=== PATIENT | female | born 1990 | race Caucasian/White ===

== ENCOUNTER → 2019-09-29 | Outpatient (CLI) | payer OTHER | END | disposition home or self-care (01) | LOC: LAB 13:33 | PROVIDERS: ATTEND Internal Medicine Gastroenterology | DX: Z11.59 Encounter for screening for other viral diseases (principal) | CPT/HCPCS: U0003-CS ==

== ENCOUNTER → 2019-10-03 | Day surgery (SDC) | payer OTHER ==
[~2019-10-03] MED LIST: IV RINGERS,LACTATED 1000ML 1,000 ML IV ONE; PROPOFOL 10 MG/ML (20ML) VIAL. IV ONE
[2019-10-03 12:39] VITALS: BP 101/65
--- NOTE | 2019-10-04 17:06 | PATHOLOGY ---
[facility] Accession Number: [id number] . 01 Material submitted: . PART A: duodenum - BIOPSY SECOND PORTION DUODENUM. Modifiers: second PART B: duodenum bulb - BIOPSY DUODENAL BULB PART C: stomach - BIOPSY GASTRIC ANTRUM AND BODY. Modifiers: body PART D: esophagus - BIOPSY DISTAL ESOPHAGUS. Modifiers: distal PART E: ileum - BIOPSY TERMINAL ILEUM PART F: colon - BIOPSY RIGHT COLON. Modifiers: right PART G: colon - BIOPSY LEFT COLON. Modifiers: left . 01 Clinical history: . diarrhea . 02 Diagnosis: A. Duodenal biopsies, second portion duodenum: - No significant pathologic abnormalities. . B. Duodenal biopsies, duodenal bulb: - No significant pathologic abnormalities. . C. Gastric biopsies, gastric body and gastric antrum: - Chronic gastritis, mild. . D. Esophageal biopsies, distal esophagus: - Reflux esophagitis. . E. Small intestine mucosa, terminal ileum biopsies: - No significant pathologic abnormalities. . F. Colonic mucosa, right colon biopsies: - Collagenous colitis. . G. Colonic mucosa, left colon biopsies: - Collagenous colitis. . (JP:fco; 10/04/2019) [facility] 10/04/2019 1630 Local . 02 Comment: Sections of the second portion of duodenum biopsy reveal segments of duodenal and small intestine mucosa. Where best oriented, mucosal villi show no sprue-like changes or significant inflammatory changes. . Segments of the duodenal bulb biopsy reveal segments of duodenal mucosa. Where best oriented, the mucosal villi show no sprue-like changes or significant inflammatory changes. . Sections of the gastric biopsy reveal segments of gastric body and antral/body transition mucosa showing congestion and mild chronic inflammation. A properly-controlled immunoperoxidase stain for Helicobacter is negative for Helicobacter organisms. . Sections of the distal esophageal biopsy reveal segments of hyperplastic squamous esophageal mucosa with contiguous and separate segments of gastric mucosa showing focal moderate active chronic inflammation. The findings are consistent with reflux esophagitis. There is no evidence of Bui's change, dysplasia, or malignancy. . Sections of the terminal ileum biopsy reveal segments of small intestine mucosa. Where best oriented, the mucosal villi show no sprue-like changes or significant inflammatory changes. . Sections of the right colon and left colon biopsies appear similar and reveal multiple segments of colonic mucosa showing a mild chronic active colitis without crypt architectural distortion. Collagen is focally deposited around the absorptive capillary complex beneath the surface epithelium. The findings are supportive of the diagnosis of collagenous colitis. There is no evidence of a chronic destructive colitis. . Special stain: Immunoperoxidase stain for Helicobacter on C1 . (JPM:mml; 10/04/2019) . 02 Electronically signed: . Vern Galeana MD, Pathologist NPI- [id number] . 01 Gross description: . A. The specimen is received in formalin labeled "Jayshree, Debra, BX second portion duodenum" and consists of multiple fragments of layne tissue measuring 0.8 x 0.5 x 0.2 cm in aggregate which are entirely submitted in A1. . B. The specimen is received in formalin labeled "Jayshree, Debra, BX duodenal bulb" and consists of multiple fragments of layne tissue measuring 1.3 x 0.3 x 0.2 cm in aggregate which are entirely submitted in B1. . C. The specimen is received in formalin labeled "Jayshree, Debra, BX of gastric antrum and body" and consists of multiple fragments of pink-layne tissue measuring 1.6 x 0.3 x 0.2 cm in aggregate which are entirely submitted in C1. . D. The specimen is received in formalin labeled "Jayshree, Debra, BX distal esophagus" and consists of multiple fragments of pink-layne tissue measuring 0.7 x 0.3 x 0.2 cm in aggregate which are entirely submitted in D1. . E. The specimen is received in formalin labeled "Jayshree, Debra, BX terminal ileum" and consists of multiple fragments of white-layne tissue measuring 0.9 x 0.2 x 0.2 cm in aggregate which are entirely submitted in E1. . F. The specimen is received in formalin labeled "Jayshree, Debra, BX right colon" and consists of multiple fragments of white-layne tissue measuring 1.3 x 0.3 x 0.2 cm in aggregate which are entirely submitted in F1. . G. The specimen is received in formalin labeled "Debra Martell, BX left colon" and consists of multiple fragments of layne tissue measuring 1.4 x 0.3 x 0.2 cm in aggregate which are entirely submitted in G1. (MARKEL; 10/03/2019) JFQ/JFQ 10/03/2019 1651 Local . 02 Pathologist provided ICD-10: K21.0, K52.831 . 02 CPT . 954876, 910230, 403024, 118423, 286230, [id number], [id number], [id number] Specimen Comment: A courtesy copy of this report has been sent to [phone], [phone] Specimen Comment: [id number] Specimen Comment: Report sent to / DR LUCAS Performed at: 01 [facility] [address], [place] [id number] MD Aki Iqbal MD Phone: [phone] Performed at: 02 [facility] [address] [place], [place] [id number] MD Vern Galeana MD Phone: [phone]
== END | disposition home or self-care (01) ==
LOC: ENDOS 10:03 → EDUNIT# 11:00
PROVIDERS: ATTEND Internal Medicine Gastroenterology
DX: R19.7 Diarrhea, unspecified (principal); K52.831 Collagenous colitis; K21.0 Gastro-esophageal reflux disease with esophagitis; K29.50 Unspecified chronic gastritis without bleeding; K64.0 First degree hemorrhoids; F15.90 Other stimulant use, unspecified, uncomplicated; F41.9 Anxiety disorder, unspecified; F32.9 Major depressive disorder, single episode, unspecified; Z72.89 Other problems related to lifestyle; Z87.891 Personal history of nicotine dependence; Z86.010 Personal history of colon polyps; Z98.890 Other specified postprocedural states
CPT/HCPCS: 43239; 45380; 81025; 88305; 88342; J2704